=== PATIENT | male | born 1960 | race Caucasian/White ===

== ENCOUNTER 2016-12-12 11:10 | Emergency (ER) | payer BC, OTHER ==
[~2016-12-12] VITALS: Ht 175.3 cm; Wt 89.4 kg
[~2016-12-12 11:10] MED LIST: ACETAMINOPHEN-1 EAC1 PO; CELEXA 20 MG TA20 M1 PO; GNP HEADACHE P1 EACH PO; LORAZEPAM 0.50.5 MG PO; NAPROSYN500 MG PO; NORCO 5-325 TA1 EACH PO; PERCOCET 5-3251 EACH PO; PRILOSEC 10MG C10 M1 PO; TAMSULOSIN HCL0.4 M1 PO; ZOFRAN ODT4 MG PO; ZOFRAN8 MG PO
[2016-12-12] MEDS ORDERED: BENICAR20 MG PO (11:21)
[2016-12-12] MEDS ORDERED: MOBIC7.5 M1 PO (11:21)
[2016-12-12] MEDS ORDERED: KEFLEX500 MG PO (13:14)
[2016-12-12] MEDS ORDERED: NORCO 5-325 TA1 EACH PO (13:19)
== END 2016-12-12 13:33 | disposition home or self-care (01) ==
LOC: ER 11:10
DX: S62.632A Displaced fracture of distal phalanx of right middle finger, initial encounter for closed fracture (principal); S61.212A Laceration without foreign body of right middle finger without damage to nail, initial encounter; Z87.442 Personal history of urinary calculi; W23.0XXA Caught, crushed, jammed, or pinched between moving objects, initial encounter; Y93.89 Activity, other specified; Y92.89 Other specified places as the place of occurrence of the external cause; Y99.8 Other external cause status